=== PATIENT | female | born 1950 | race Caucasian/White ===

== ENCOUNTER → 2016-08-10 | Outpatient (CLI) | payer MEDICARE, OTHER ==
[2016-08-10 07:06] LABS: Blood Urea Nitrogen 21 mg/dL (7-17); Non-African American GFR(MDRD) >60 (>60 ml/min/1.73 sqM)
--- NOTE | 2016-08-10 11:37 | FL ---
Esophagram INDICATION: Dysphasia, sensation of food sticking in throat Double air-contrast technique is utilized to evaluate the esophagus. The esophagus dilates to normal caliber has normal contour to the gastroesophageal junction. Note is made of secondary and tertiary contractions during the examination. There is incomplete stripping of the esophageal bolus in the horizontal drinking position. Note is made of a large hiatal hernia. No hesitancy passing between the hiatal hernia into the stomac h is evident. No stenosis at the gastroesophageal junction at the hernia is evident. Note is made of reflux to the level of the aortic arch during the exam IMPRESSIONS: 1. Gastroesophageal reflux to the aortic arch level. 2. Presbyesophagus. 3. Large hiatal hernia. 4. No obstruction identified
--- NOTE | 2016-08-10 16:32 | CT ---
EXAMINATION TYPE: CT soft tissue neck w con DATE OF EXAM: 08/10/2016 7:28 AM COMPARISON: NONE HISTORY: Dysphasia neck pain CT DLP: 584 mGycm CONTRAST: Patient injected with 100 mL of Omnipaque 300. TECHNIQUE: Axial images at 3 mm thick sections. Reconstructed images in the coronal plane and sagitt al plane are reviewed. Beam hardening artifact from dental amalgam is present. FINDINGS: Limited CT sections are obtained the lung apices. The lung apices appear clear. CT neck: The torus tubarius and fossa of Rosenmuller are normal. Box Brander spaces are normal. Para nasal sinuses and mastoid air cells are clear. Parotid glands appear normal and symmetrical. Small lymph node may be within the anterior left exter nal parotid gland. Submandibular glands, are normal. Parapharyngeal spaces are normal. No suspiciou s adenopathy is evident. Small right submandibular lymph node is present. The hypopharynx appears within normal limits. Vocal cord level appear symmetrical. Thyroid as visualized is normal. Osseous structures are normal. IMPRESSIONS: 1. Unremarkable CT neck.
== END | disposition home or self-care (01) ==
LOC: RADCTMAIN 06:34
PROVIDERS: ATTEND Otolaryngology
DX: K21.9 Gastro-esophageal reflux disease without esophagitis (principal); K22.8 Other specified diseases of esophagus; K44.9 Diaphragmatic hernia without obstruction or gangrene; M54.2 Cervicalgia
CPT/HCPCS: 82565; 84520; 74220; 70491; 36415; Q9967

== ENCOUNTER → 2017-05-14 | Outpatient (CLI) | payer MEDICARE, OTHER ==
--- NOTE | 2017-05-15 13:23 | MM ---
Reason for exam: screening (asymptomatic). Last mammogram was performed 1 year and 1 month ago. History: Patient is postmenopausal. Took estrogen for 14 years. Physical Findings: A clinical breast exam by your physician is recommended on an annual basis and results should be correlated with mammographic findings. MG 3D Screening Mammo W/Cad Bilateral CC and MLO view(s) were taken. Prior study comparison: April 20, 2016, bilateral MG screening mammo w CAD. April 06, 2015, bilateral MG screening mammo w CAD. March 17, 2014, bilateral MG screening mammo w CAD. The breast tissue is heterogeneously dense. This may lower the sensitivity of mammography. There is no discrete abnormality. ASSESSMENT: Negative, BI-RAD 1 RECOMMENDATION: Routine screening mammogram of both breasts in 1 year.
== END | disposition home or self-care (01) ==
LOC: RADMAMWWP 08:48
PROVIDERS: ATTEND Internal Medicine
DX: Z12.31 Encounter for screening mammogram for malignant neoplasm of breast (principal)
CPT/HCPCS: 77063; 77067

== ENCOUNTER 2018-12-27 17:39 | Emergency (ER) | payer MEDICARE, OTHER ==
[2018-12-27 17:44] VITALS: BP 152/78; PULSE 86; RESP 18; TEMP 97.8
--- NOTE | 2018-12-27 18:37 | CT ---
EXAMINATION TYPE: CT brain wo con DATE OF EXAM: 12/27/2018 COMPARISON: None HISTORY: posterior head injury following fall CT DLP: 1087.4 mGycm Automated exposure control for dose reduction was used. FINDINGS: Ventricles have normal size. There is no mass effect nor midline shift. There is no sign of intracran ial hemorrhage. The calvarium is intact. IMPRESSION: NEGATIVE HEAD CT SCAN.
--- NOTE | 2018-12-27 19:01 | ED ---
Fall HPI - General Chief Complaint: Fall Stated Complaint: fall, head injury Time Seen by Provider: 12/27/18 17:49 Source: patient Mode of arrival: wheelchair - History of Present Illness Initial Comments: Patient is a 68-year-old female presenting to the emergency Department with complaints of right knee pain after falling off the second step of a ladder yesterday. She states she was attempting to paint her bathroom when she lost her footing and fell backwards also hitting her head on the toilet. Patient states her right knee pain has been increasing since yesterday. SHe is unsure what she hit her knee on. She denies any previous surgeries her right knee. Patient denies being on a blood thinner. Patient denies LOC. Patient denies fever, chills, nausea, vomiting. Patient has no other complaints right now. Upon arrival to ER vital signs are stable. Review of Systems ROS Statement: Those systems with pertinent positive or pertinent negative responses have been documented in the HPI. ROS Other: All systems not noted in ROS Statement are negative. Past Medical History Past Medical History: GERD/Reflux, Osteoarthritis (OA) Additional Past Medical History / Comment(s): SVT, hiatal hernia History of Any Multi-Drug Resistant Organisms: None Reported Past Surgical History: Adenoidectomy, Hysterectomy, Tonsillectomy Additional Past Surgical History / Comment(s): bladder suspension Past Psychological History: No Psychological Hx Reported Smoking Status: Never smoker Past Alcohol Use History: None Reported Past Drug Use History: None Reported General Exam - General Exam Comments Initial Comments: GENERAL: Well-appearing, well-nourished and in no acute distress. HEAD: Atraumatic, normocephalic. Patient has a small hematoma present on the left, posterior aspect of the head. EYES: Pupils equal round and reactive to light, extraocular movements intact, sclera anicteric, conjunctiva are normal. ENT: TMs normal, nares patent, oropharynx clear without exudates. Moist mucous membranes. NECK: Normal range of motion, supple without lymphadenopathy or JVD. LUNGS: Breath sounds clear to auscultation bilaterally and equal. No wheezes rales or rhonchi. HEART: Regular rate and rhythm without murmurs, rubs or gallops. ABDOMEN: Soft, nontender, normoactive bowel sounds. No guarding, no rebound. No masses appreciated. : Deferred EXTREMITIES: Patient has mild swelling proximal to her right patella. Patient has pain with palpation of her distal quadricep muscle and along the lateral aspect of the right superior knee. No pain with palpation in the right knee joint line or lower leg. Patient has decreased range of motion secondary to pain. No clubbing or cyanosis. NEUROLOGICAL: Cranial nerves II through XII grossly intact. Normal speech, normal gait. PSYCH: Normal mood, normal affect. SKIN: Warm, Dry, normal turgor, no rashes or lesions noted. Limitations: no limitations Course Vital Signs 12/27/18 17:41 Temperature 97.8 F Pulse Rate 86 Respiratory 18 Rate Blood Pressure 152/78 O2 Sat by Pulse 98 Oximetry Medical Decision Making - Medical Decision Making Patient is a 68-year-old female presenting with right knee pain after falling off the second step of a ladder yesterday. Patient admits to also hitting her head on the toilet when she fell backwards. Patient denies LOC, being on blood thinners. On exam patient has tenderness of the distal quadricep muscle of the right knee. Patient has mild swelling of the area as well. Patient also has a hematoma on the left posterior aspect of the head. Rest of patient's exam is within normal limits. CT of the brain was obtained and reveals no acute abnormalities. It was discussed with patient that her right knee pain is secondary to right quadricep contusion. Patient will use to rest, heat, ice to the area. If symptoms do not improve within 1 week she will follow-up with primary care. Patient is stable for discharge at this time. Return parameters were discussed with patient she verbalized understanding. Case discussed with Dr. Cordoba. Disposition Clinical Impression: Fall, Head contusion, Right knee pain, Quadriceps contusion Disposition: HOME SELF-CARE Condition: Stable Instructions (If sedation given, give patient instructions): Fall Prevention for Older Adults (ED), Contusion in Adults (ED) Additional Instructions: Please return to the Emergency Department if symptoms worsen or any other concerns. Follow-up with PCP if pain and right knee continues after 1 week. Use ice, elevation, Tylenol for pain. Is patient prescribed a controlled substance at d/c from ED?: No Referrals: Linda Najera MD [Primary Care Provider] - 1-2 days
== END 2018-12-27 19:15 | disposition home or self-care (01) ==
LOC: EC 17:39
DX: S00.93XA Contusion of unspecified part of head, initial encounter (principal); S70.11XA Contusion of right thigh, initial encounter; W18.09XA Striking against other object with subsequent fall, initial encounter; Y92.002 Bathroom of unspecified non-institutional (private) residence as the place of occurrence of the external cause
CPT/HCPCS: 70450; 99283

== ENCOUNTER 2019-08-21 12:10 | Emergency (ER) | payer MEDICARE, OTHER ==
[2019-08-21 12:25] VITALS: TEMP 98.5
[2019-08-21] MEDS ORDERED: SODIUM CHLORIDE 0.9% 1,000 ML IV SCH (12:30)
[2019-08-21] MEDS ORDERED: SODIUM CHLORIDE 0.9% 500 ML 500 ML IV ONE (12:30)
--- NOTE | 2019-08-21 12:30 | ED ---
Abdominal Pain HPI - General Chief Complaint: Abdominal Pain Stated Complaint: Constipation Time Seen by Provider: 08/21/19 12:27 Source: patient Mode of arrival: ambulatory Limitations: no limitations - History of Present Illness Initial Comments: 69-year-old female presenting today for chief complaint of lower abdominal pain, distention x 4 days. Patient states she has struggled constipation over the past 2 years has been taking daily stool softeners. She states it has worsened for the past 2 weeks she took a laxative on Saturday and had a large bowel movement however she has very painful aching dull pain in the lower abdomen, including LLQ. Patient states this feels different from her typical constipation, which she states is usually no painful. Patient denies nausea, vomiting, bloody stools, diarrhea (aside from taking laxatives). Patient states she took miralax twice on Saturday which did not help and she did no have a bowel movement. Patient denies upper abdominal pain, indigestion, chest pain or shortness of breath. Patient Arianne urinary symptoms such as dysuria, urgency and frequency. Patient appears slightly uncomfortable on arrival- but in no distress. Very pleasant. - Related Data Allergies Allergy/AdvReac Type Severity Reaction Status Date / Time Iodinated Contrast Media Allergy Mild Rash/Hives Unverified 08/21/19 14:25 Review of Systems ROS Statement: Those systems with pertinent positive or pertinent negative responses have been documented in the HPI. ROS Other: All systems not noted in ROS Statement are negative. Past Medical History Past Medical History: GERD/Reflux, Osteoarthritis (OA), Supraventricular Tachycardia (SVT) Additional Past Medical History / Comment(s): SVT, hiatal hernia, arthritis History of Any Multi-Drug Resistant Organisms: None Reported Past Surgical History: Adenoidectomy, Hysterectomy, Tonsillectomy Additional Past Surgical History / Comment(s): bladder suspension Past Psychological History: No Psychological Hx Reported Smoking Status: Never smoker Past Alcohol Use History: None Reported Past Drug Use History: None Reported General Exam - General Exam Comments Initial Comments: General: The patient is awake and alert, in no distress, and does not appear acutely ill. Eye: Pupils are equal, round and reactive to light, extra-ocular movements are intact. No nystagmus. There is normal conjunctiva bilaterally. No signs of icterus. Ears, nose, mouth and throat: There are moist mucous membranes and no oral lesions. Neck: The neck is supple, there is no tenderness or JVD. Cardiovascular: There is a regular rate and rhythm. No murmur, rub or gallop is appreciated. Respiratory: Lungs are clear to auscultation, respirations are non-labored, breath sounds are equal. No wheezes, stridor, rales, or rhonchi. Gastrointestinal: Soft, non-distended, diffuse lower abdominal tenderness remaining abdomen without masses or organomegaly noted. There is no rebound or guarding present. No CVA tenderness. Bowel sounds are unremarkable. Musculoskeletal: Normal ROM, no tenderness. Strength 5/5. Sensation intact. Radial pulses equal bilaterally 2+. Neurological: A&O x 3. CN II-XII intact, There are no obvious motor or sensory deficits. Coordination appears grossly intact. Speech is normal. Skin: Skin is warm and dry and no rashes or lesions are noted. Psychiatric: Cooperative, appropriate mood & affect, normal judgment. Limitations: no limitations Course Vital Signs 08/21/19 08/21/19 08/21/19 12:20 12:24 13:24 Temperature 98.5 F Pulse Rate 105 H Respiratory 18 20 20 Rate Blood Pressure 151/92 O2 Sat by Pulse 98 Oximetry 08/21/19 08/21/19 08/21/19 14:00 15:00 16:20 Temperature Pulse Rate 98 93 Respiratory 20 20 20 Rate Blood Pressure 155/90 162/96 O2 Sat by Pulse 98 98 Oximetry 08/21/19 16:25 Temperature Pulse Rate 93 Respiratory 20 Rate Blood Pressure 162/96 O2 Sat by Pulse 98 Oximetry Medical Decision Making - Medical Decision Making CT revealed incidental finding of hiatal hernia, cystic lesions of the kidneys patient states she is aware of this. Patient CT otherwise no apparent acute process. Stool burden. Patient states that she doesnt want treatment for constipation in the ER as the laxatives worked on saturday and she will take some at home. Labs stable. Patient appears well. She was discharged appearing well after discussing case with Dr. Ramirez. - Lab Data Result diagrams: 08/21/19 12:59 08/21/19 12:59 Lab Results 08/21/19 08/21/19 08/21/19 Range/Units 12:59 12:59 12:59 WBC 6.2 (3.8-10.6) k/uL RBC 4.87 (3.80-5.40) m/uL Hgb 13.8 (11.4-16.0) gm/dL Hct 43.7 (34.0-46.0) % MCV 89.8 (80.0-100.0) fL MCH 28.3 (25.0-35.0) pg MCHC 31.5 (31.0-37.0) g/dL RDW 13.5 (11.5-15.5) % Plt Count 303 (150-450) k/uL Neutrophils % 63 % Lymphocytes % 24 % Monocytes % 8 % Eosinophils % 2 % Basophils % 1 % Neutrophils # 3.9 (1.3-7.7) k/uL Lymphocytes # 1.5 (1.0-4.8) k/uL Monocytes # 0.5 (0-1.0) k/uL Eosinophils # 0.2 (0-0.7) k/uL Basophils # 0.1 (0-0.2) k/uL Sodium 139 (137-145) mmol/L Potassium 4.4 (3.5-5.1) mmol/L Chloride 102 (98-107) mmol/L Carbon Dioxide 28 (22-30) mmol/L Anion Gap 9 mmol/L BUN 12 (7-17) mg/dL Creatinine 0.72 (0.52-1.04) mg/dL Est GFR (CKD-EPI)AfAm >90 (>60 ml/min/1.73 sqM) Est GFR (CKD-EPI)NonAf 87 (>60 ml/min/1.73 sqM) Glucose 100 H (74-99) mg/dL Plasma Lactic Acid Rogerio (0.7-2.0) mmol/L Calcium 9.8 (8.4-10.2) mg/dL Total Bilirubin 0.5 (0.2-1.3) mg/dL AST 29 (14-36) U/L ALT 15 (4-34) U/L Alkaline Phosphatase 106 (38-126) U/L Total Protein 7.8 (6.3-8.2) g/dL Albumin 4.7 (3.5-5.0) g/dL Amylase 56 (30-110) U/L Lipase 159 (23-300) U/L Urine Color Light Yellow Urine Appearance Clear (Clear) Urine pH 6.5 (5.0-8.0) Ur Specific [place] 1.002 (1.001-1.035) Urine Protein Negative (Negative) Urine Glucose (UA) Negative (Negative) Urine Ketones Negative (Negative) Urine Blood Negative (Negative) Urine Nitrite Negative (Negative) Urine Bilirubin Negative (Negative) Urine Urobilinogen <2.0 (<2.0) mg/dL Ur Leukocyte Esterase Negative (Negative) 08/21/19 Range/Units 12:59 WBC (3.8-10.6) k/uL RBC (3.80-5.40) m/uL Hgb (11.4-16.0) gm/dL Hct (34.0-46.0) % MCV (80.0-100.0) fL MCH (25.0-35.0) pg MCHC (31.0-37.0) g/dL RDW (11.5-15.5) % Plt Count (150-450) k/uL Neutrophils % % Lymphocytes % % Monocytes % % Eosinophils % % Basophils % % Neutrophils # (1.3-7.7) k/uL Lymphocytes # (1.0-4.8) k/uL Monocytes # (0-1.0) k/uL Eosinophils # (0-0.7) k/uL Basophils # (0-0.2) k/uL Sodium (137-145) mmol/L Potassium (3.5-5.1) mmol/L Chloride (98-107) mmol/L Carbon Dioxide (22-30) mmol/L Anion Gap mmol/L BUN (7-17) mg/dL Creatinine (0.52-1.04) mg/dL Est GFR (CKD-EPI)AfAm (>60 ml/min/1.73 sqM) Est GFR (CKD-EPI)NonAf (>60 ml/min/1.73 sqM) Glucose (74-99) mg/dL Plasma Lactic Acid Rogerio 1.0 (0.7-2.0) mmol/L Calcium (8.4-10.2) mg/dL Total Bilirubin (0.2-1.3) mg/dL AST (14-36) U/L ALT (4-34) U/L Alkaline Phosphatase (38-126) U/L Total Protein (6.3-8.2) g/dL Albumin (3.5-5.0) g/dL Amylase (30-110) U/L Lipase (23-300) U/L Urine Color Urine Appearance (Clear) Urine pH (5.0-8.0) Ur Specific [place] (1.001-1.035) Urine Protein (Negative) Urine Glucose (UA) (Negative) Urine Ketones (Negative) Urine Blood (Negative) Urine Nitrite (Negative) Urine Bilirubin (Negative) Urine Urobilinogen (<2.0) mg/dL Ur Leukocyte Esterase (Negative) Disposition Clinical Impression: Constipation, Renal cyst, Hiatal hernia Disposition: HOME SELF-CARE Condition: Good Instructions (If sedation given, give patient instructions): Constipation (ED), High Fiber Diet (ED) Additional Instructions: Please use medication as discussed. Please follow-up with family doctor in the next 2 days. Please return to emergency room if the symptoms increase or worsen or for any other concerns. Is patient prescribed a controlled substance at d/c from ED?: No Referrals: Linda Najera MD [Primary Care Provider] - 1-2 days Taras Perez MD [STAFF PHYSICIAN] - 1-2 days Time of Disposition: 15:04
[2019-08-21 13:14] LABS: Appearance,Urine Clear (Clear); Basophils # (A) 0.1 k/uL (0-0.2); Basophils % (A) 1 %; Bilirubin,Urine Negative (Negative); Blood,Urine Negative (Negative); Color,Urine Light Yellow; Eosinophils # (A) 0.2 k/uL (0-0.7); Eosinophils % (A) 2 %; Glucose,Urine (UA) Negative (Negative); HCT 43.7 % (34.0-46.0); HGB 13.8 gm/dL (11.4-16.0); Ketones,Urine Negative (Negative); Leukocyte Esterase,Urine Negative (Negative); Lymphocytes # (A) 1.5 k/uL (1.0-4.8); Lymphocytes % (A) 24 %; MCH 28.3 pg (25.0-35.0); MCHC 31.5 g/dL (31.0-37.0); MCV 89.8 fL (80.0-100.0); Mean Platelet Volume 7.8; Monocytes # (A) 0.5 k/uL (0-1.0); Monocytes % (A) 8 %; Neutrophils # (A) 3.9 k/uL (1.3-7.7); Neutrophils % (A) 63 %; Nitrite,Urine Negative (Negative); PH, Urine 6.5 (5.0-8.0); Platelet Count 303 k/uL (150-450); Protein,Urine Negative (Negative); RBC 4.87 m/uL (3.80-5.40); RDW 13.5 % (11.5-15.5); Specific Gravity,Urine 1.002 (1.001-1.035); Urobilinogen,Urine <2.0 mg/dL (<2.0); WBC 6.2 k/uL (3.8-10.6)
[2019-08-21 13:27] VITALS: RESP 20
[2019-08-21 13:48] LABS: ALT 15 U/L (4-34); AST 29 U/L (14-36); African American GFR (CKD) >90 (>60 ml/min/1.73 sqM); Albumin 4.7 g/dL (3.5-5.0); Alkaline Phosphatase 106 U/L (38-126); Amylase 56 U/L (30-110); Anion Gap 9 mmol/L; Blood Urea Nitrogen 12 mg/dL (7-17); Calcium 9.8 mg/dL (8.4-10.2); Carbon Dioxide 28 mmol/L (22-30); Chloride 102 mmol/L (98-107); Glucose 100 mg/dL (74-99); Non-African American GFR(CKD) 87 (>60 ml/min/1.73 sqM); Potassium 4.4 mmol/L (3.5-5.1); Sodium 139 mmol/L (137-145); Total Bilirubin 0.5 mg/dL (0.2-1.3); Total Protein 7.8 g/dL (6.3-8.2)
[2019-08-21] MEDS ORDERED: diphenhydrAMINE 50 MG/ML 1 ML VIAL IVP STA (13:56)
[2019-08-21] MEDS ORDERED: FAMOTIDINE 20 MG/2 ML VIAL IV STA (13:56)
[2019-08-21] MEDS ORDERED: methylPREDNISolone SOD SUCCI 125 MG/2 ML VIAL IV STA (13:56)
--- NOTE | 2019-08-21 15:00 | CT ---
EXAMINATION TYPE: CT abdomen pelvis w con DATE OF EXAM: 08/21/2019 HISTORY: Generalized pain CT DLP: 1124.9mGycm Automated Exposure Control for Dose Reduction was Utilized. CONTRAST: CT scan of the abdomen and pelvis is performed with IV Contrast, patient injected with 100 mL of Isov ue 300. COMPARISON: Barium swallow dated 08/10/2016 FINDINGS: LUNG BASES: Minimal scattered areas of subsegmental atelectasis, particularly along the mediastinal b order due to a large hiatal hernia/partial intrathoracic stomach. LIVER/GB: Numerous low attenuated hepatic cysts and some subcentimeter lesions that are too small to accurately characterize but also likely represent hepatic cysts are seen. Phrygian cap of the gallbla dder is incidentally noted no radiopaque calculi in the gallbladder. PANCREAS: No significant abnormality is seen. SPLEEN: No significant abnormality is seen. ADRENALS: No significant abnormality is seen. KIDNEYS: Large right renal sinus cyst measures 6.8 cm in craniocaudal dimension and impresses on the right renal pelvis creating mild right-sided hydronephrosis. Excretion is seen into the right proxima l ureter and renal pelvis and no right-sided ureteral dilatation is seen in the mid or distal ureter. Nonobstructing 8 mm calculus is present on the left and probable 3 mm nonobstructing calculus on the right. There are right renal cysts measuring up to 1.1 cm and a probable subcentimeter left renal cy st. No radiopaque calculi in the urinary bladder. BOWEL: Partial intrathoracic stomach is seen. Mild degree colonic fecal stasis. No dilated large or s mall bowel. Lack of oral contrast limits evaluation of the bowel. LYMPH NODES: No greater than 1cm abdominal or pelvic lymph nodes are appreciated. OSSEOUS STRUCTURES: Nonspecific sclerotic focus of the left sacrum as seen on image 61. There is diff use osseous demineralization. Other sclerotic foci are seen within the pubic bones that are also inde terminate. Mild multilevel degenerative change of the spine. Grade 1 anterolisthesis of L5 on S1, lik francisca on a degenerative basis. IMPRESSION: 1. Large right renal sinus cyst diving into the renal pelvis creates mild right-sided hydronephrosis. Bilateral nonobstructing renal calculi are also seen. 2. Largely intrathoracic stomach.
[2019-08-21 16:26] VITALS: BP 162/96; PULSE 93
== END 2019-08-21 16:27 | disposition home or self-care (01) ==
LOC: EC 12:10
DX: K59.00 Constipation, unspecified (principal); N28.1 Cyst of kidney, acquired; K44.9 Diaphragmatic hernia without obstruction or gangrene; Z91.041 Radiographic dye allergy status; Z90.710 Acquired absence of both cervix and uterus
CPT/HCPCS: 99284; 96374; 96375 ×2; 96361 ×3; 36415; 80053; 82150; 83605; 83690; 85025; 81003; 74177; J1200; J2930; Q9967

== ENCOUNTER → 2020-03-14 | Outpatient (CLI) | payer MEDICARE, OTHER ==
--- NOTE | 2020-03-15 09:44 | MM ---
Reason for exam: screening (asymptomatic). Last mammogram was performed 1 year and 8 months ago. History: Patient is postmenopausal. Took estrogen for 14 years. Physical Findings: A clinical breast exam by your physician is recommended on an annual basis and results should be correlated with mammographic findings. MG 3D Screening Mammo W/Cad Bilateral CC and MLO view(s) were taken. Prior study comparison: July 14, 2018, bilateral MG 3d screening mammo w/cad. May 14, 2017, bilateral MG 3d screening mammo w/cad. The breast tissue is heterogeneously dense. This may lower the sensitivity of mammography. There is no discrete abnormality. No significant changes when compared with prior studies. ASSESSMENT: Negative, BI-RAD 1 RECOMMENDATION: Routine screening mammogram of both breasts in 1 year.
== END | disposition home or self-care (01) ==
LOC: RADMAMWWP 08:52
PROVIDERS: ATTEND Internal Medicine
DX: Z12.31 Encounter for screening mammogram for malignant neoplasm of breast (principal)
CPT/HCPCS: 77063; 77067

== ENCOUNTER → 2020-09-12 | Outpatient (CLI) | payer MEDICARE, OTHER ==
--- NOTE | 2020-09-12 11:35 | XR ---
EXAMINATION TYPE: XR ribs RT w pa chest xray DATE OF EXAM: 09/12/2020 CLINICAL HISTORY: Chest and right-sided rib pain after fall injury. TECHNIQUE: Single frontal view of the chest is obtained. A frontal and oblique images right-sided rib s. COMPARISON: CT abdomen September 10, 2019 FINDINGS: There is patchy bibasilar opacity. The cardiac silhouette size is within normal limits. Retrocardiac opacity consistent with large size hiatal hernia or intrathoracic stomach noted. Finding s confirmed on 2019 CT. The osseous structures are intact. Dedicated images right-sided ribs show age indeterminant fractures of the anterolateral right mid rib s roughly fifth through seventh ribs difficult to further assess due to osseous overlap. Correlate wi th point tenderness at this level advised. IMPRESSION: 1. Chronic changes without acute pulmonary process. 2. Age-indeterminate fractures of the anterolateral right fifth through seventh ribs, correlate clini xavier.
== END ==
LOC: RADXRYALE 11:00
PROVIDERS: ATTEND Internal Medicine
DX: R07.81 Pleurodynia (principal); W19.XXXA Unspecified fall, initial encounter

== ENCOUNTER → 2021-04-10 | Outpatient (CLI) | payer MEDICARE, OTHER ==
--- NOTE | 2021-04-10 12:05 | MM ---
Reason for exam: screening (asymptomatic). Last mammogram was performed 1 year and 1 month ago. History: Patient is postmenopausal. Took estrogen for 14 years. Physical Findings: A clinical breast exam by your physician is recommended on an annual basis and results should be correlated with mammographic findings. MG 3D Screening Mammo W/Cad Bilateral CC and MLO view(s) were taken. Prior study comparison: March 14, 2020, bilateral MG 3d screening mammo w/cad. July 14, 2018, bilateral MG 3d screening mammo w/cad. There are scattered fibroglandular densities. There is no discrete abnormality. ASSESSMENT: Negative, BI-RAD 1 RECOMMENDATION: Routine screening mammogram of both breasts in 1 year.
== END | disposition home or self-care (01) ==
LOC: RADMAMWWP 10:46
PROVIDERS: ATTEND Internal Medicine
DX: Z12.31 Encounter for screening mammogram for malignant neoplasm of breast (principal)
CPT/HCPCS: 77063; 77067

== ENCOUNTER → 2021-11-18 | Outpatient (CLI) | payer MEDICARE, OTHER ==
--- NOTE | 2021-11-18 16:24 | MR ---
EXAMINATION TYPE: MR lumbar spine wo con DATE OF EXAM: 11/18/2021 COMPARISON: HISTORY: Low back pain that radiates down both legs since 2021 CONTRAST: 0 mL intravenous . TECHNIQUE: Multiplanar, multisequence images of the lumbar spine were acquired. FINDINGS: L5-S1: No significant disc bulge or disc herniation. No spinal canal stenosis. Facet hypertrophy is present. Significant posterior lateral thecal sac compression is not evident. Moderate foraminal st enosis is present on the right. L4-L5: No significant disc bulge or disc herniation. No spinal canal stenosis. Facet hypertrophy is present with mild posterior lateral thecal sac compression. Mild foraminal narrowing is present on the right.. L3-L4: No significant disc bulge or disc herniation. No spinal canal stenosis. Facet hypertrophy herbert s posterior lateral thecal sac compression. Mild Left foraminal stenosis is present.. Severe right fo raminal stenosis is present. L2-L3: No significant disc bulge or disc herniation. No spinal canal stenosis. Moderate Left forami nal narrowing is present. Facet hypertrophy is present with left posterior lateral thecal sac alejandra cindy L1-L2: Mild broad-based left paracentral disc bulge present with mild to moderate anterior thecal sac compression. No AP spinal canal stenosis or neural foraminal stenosis is present. Disc desiccation is present.. T12-L1: No significant disc bulge or disc herniation. No spinal canal stenosis. No foraminal stenos is. Disc desiccation is present.. IMPRESSION: 1. Facet hypertrophy greatest in severe at L3-4 on the right. 2. Facet hypertrophy L4-5 and L5-S1. Some posterior lateral thecal sac compression at L4-5 and L3-4 i s present. 3. Mild broad-based left paracentral disc bulge L1-2 with mild to moderate anterior thecal sac compre ssion.
== END | disposition home or self-care (01) ==
LOC: RADMRIMAIN 07:50
PROVIDERS: ATTEND Anesthesiology
DX: M51.36 Other intervertebral disc degeneration, lumbar region (principal); M47.896 Other spondylosis, lumbar region
CPT/HCPCS: 72148

== ENCOUNTER → 2022-01-08 | Outpatient (CLI) | payer MEDICARE, OTHER ==
--- NOTE | 2022-01-08 12:19 | XR ---
EXAMINATION TYPE: XR KUB DATE OF EXAM: 01/08/2022 COMPARISON: None INDICATION: Renal calculus TECHNIQUE: Single view abdomen frontal projection FINDINGS: There is a nonspecific bowel gas pattern. Psoas margins are normal. No organomegaly is present. There is a 1.1 cm calcification at the mid pole left kidney. A right renal pelvic stone on excluded m easuring 0.7 cm. IMPRESSION: 1. Left renal calculus. 2. Smaller right renal pelvic calculus is not excluded
== END | disposition home or self-care (01) ==
LOC: RADXRMAIN 11:43
PROVIDERS: ATTEND Urology
DX: N20.0 Calculus of kidney (principal)
CPT/HCPCS: 74018

== ENCOUNTER → 2022-04-17 | Outpatient (CLI) | payer MEDICARE, OTHER ==
--- NOTE | 2022-04-18 08:08 | MM ---
Reason for Exam: Screening (asymptomatic). Last screening mammogram was performed 12 month(s) ago. Patient History: Menarche at age 15. First Full-Term at age 28. Left ovary removed at age 37. Right ovary removed at age 37. Hysterectomy at age 37. Postmenopausal. Patient used Estrogen for 14 years. Risk Values: Supriya 5 year model risk: 1.8%. NCI Lifetime model risk: 4.9%. Prior Study Comparison: 07/14/2018 Bilateral Screening Mammogram, [facility]. 03/14/2020 Bilateral Screening Mammogram, [facility]. 04/10/2021 Bilateral Screening Mammogram, [facility]. Tissue Density: There are scattered fibroglandular densities. Findings: Analyzed By CAD. There is no suspicious group of microcalcifications or new suspicious mass in either breast. Overall Assessment: Negative, BI-RAD 1 Management: Screening Mammogram of both breasts in 1 year. A clinical breast exam by your physician is recommended on an annual basis and results should be correlated with mammographic findings. [facility] will attempt to contact patient to return for supplemental views and ultrasound if indicated. Electronically signed and approved by: Pino Patel DO
== END | disposition home or self-care (01) ==
LOC: RADMAMWWP 09:12
PROVIDERS: ATTEND Internal Medicine
DX: Z12.31 Encounter for screening mammogram for malignant neoplasm of breast (principal); Z78.0 Asymptomatic menopausal state
CPT/HCPCS: 77063; 77067

== ENCOUNTER → 2023-05-08 | Outpatient (CLI) | payer MEDICARE, OTHER ==
--- NOTE | 2023-05-08 18:27 | BD ---
EXAMINATION TYPE: Axial Bone Density DATE OF EXAM: 05/08/2023 CLINICAL HISTORY: 72 years old Female. ICD-10 CODE: N95.8 MENOPAUSAL AND PERIMENOPAUS Height: 64 Weight: 150.3 FRAX RISK QUESTIONS: Alcohol (3 or more units per day): no Family History (Parent hip fracture): no Glucocorticoids (More than 3mos): no (Ex: prednisone, prednisolone, methylprednisolone, dexamethasone, and hydrocortisone). History of Fracture in Adulthood: yes Secondary Osteoporosis: 1. Type 1 Diabetes: no 2. Hyperthyroidism: no 3. Menopause before 45: yes 4. Malnutrition: no 5. Chronic liver disease: no Rheumatoid Arthritis: yes Current Tobacco Use: no RISK FACTORS HISTORY OF: History of Wrist Fracture: bilateral wrist When: 15 years ago Surgery to Spine/Hip(right/left)/Wrist (right/left): no MEDICATIONS: Additional History: EXAM MEASUREMENTS: Bone mineral densitometry was performed using the [employer] System. Bone mineral density as measured about the Lumbar spine is: ----- L1-L4(G/cm2): 1.262 T Score Values are as follows: ----- L1: -1.2 ----- L2: 0.3 ----- L3: 1.1 ----- L4: 1.7 ----- L1-L4: 0.7 Z Score Values are as follows: ----- L1: 0.4 ----- L2: 1.9 ----- L3: 2.7 ----- L4: 3.3 ----- L1-L4: 2.3 Bone mineral density : baseline Bone mineral density about the R hip (g/cm2): 0.792 Bone mineral density about the L hip (g/cm2): 0.850 T Score values are as follows: -----R Neck: -1.4 -----L Neck: -0.8 -----R Total: -1.7 -----L Total: -1.3 Z Score values are as follows: -----R Neck: 0.3 -----L Neck: 0.9 -----R Total: -0.2 -----L Total: 0.3 Bone mineral density : baseline FRAX%s: The graph provided illustrates a 21.0 % chance for a major osteoporotic fx and a 3.6% chance for the hips probability for fx in 10 years time. IMPRESSION: Osteopenia (T Score between -2.5 and -1). There is slightly increased risk of fracture and the patient may be considered for treatment. Re-Screen 2-5 years. NOTE: T-SCORE=SD OF THE YOUNG ADULT MEAN.
--- NOTE | 2023-05-09 20:06 | MM ---
Reason for Exam: Screening (asymptomatic). Last mammogram was performed 1 year(s) and 1 month(s) ago. Patient History: Menarche at age 15. First Full-Term at age 28. Left ovary removed at age 37. Right ovary removed at age 37. Hysterectomy at age 37. Postmenopausal. Patient used Estrogen for 14 years. Risk Values: Supriya 5 year model risk: 1.8%. NCI Lifetime model risk: 4.6%. Prior Study Comparison: 03/14/2020 Bilateral Screening Mammogram, [facility]. 04/10/2021 Bilateral Screening Mammogram, [facility]. 04/17/2022 Bilateral MG 3D screening mammo w/cad, [facility]. Tissue Density: The breast tissue is heterogeneously dense. This may lower the sensitivity of mammography. Findings: Analyzed By CAD. There is no suspicious group of microcalcifications or new suspicious mass in either breast. Overall Assessment: Negative, BI-RAD 1 Management: Screening Mammogram of both breasts in 1 year. . Patient should continue monthly self-breast exams. A clinical breast exam by your physician is recommended on an annual basis. This exam should not preclude additional follow-up of suspicious palpable abnormalities. Note on Supriya scores and lifetime risk: 1. A Supriya score greater than 3% is considered moderate risk. If this is the case, consider specialist referral to assess eligibility for a risk reducing agent. 2. If overall lifetime risk for the development of breast cancer is 20% or higher, the patient may qualify for future screening with alternating mammogram and breast MRI. Electronically signed and approved by: Anthony Perez M.D. Radiologist
== END | disposition home or self-care (01) ==
LOC: RADMAMWWP 07:55
PROVIDERS: ATTEND Internal Medicine
DX: Z12.31 Encounter for screening mammogram for malignant neoplasm of breast (principal); M85.89 Other specified disorders of bone density and structure, multiple sites; Z78.0 Asymptomatic menopausal state
CPT/HCPCS: 77063; 77067; 77080

== ENCOUNTER → 2023-10-22 | Outpatient (CLI) | payer MEDICARE, OTHER ==
[2023-10-22 15:52] LABS: Alkaline Phosphatase 57 U/L (41-126); Blood Urea Nitrogen 16.2 mg/dL (9.0-27.0); C Reactive Protein <0.30 mg/dL (0.00-0.80); Calcium 9.3 mg/dL (8.7-10.3)
== END | disposition home or self-care (01) ==
LOC: LABWHC1 10:32
PROVIDERS: ATTEND Internal Medicine Rheumatology
DX: M25.50 Pain in unspecified joint (principal); M06.4 Inflammatory polyarthropathy; M81.0 Age-related osteoporosis without current pathological fracture
CPT/HCPCS: 36415; 82306; 82310; 82565; 83970; 84075; 84520; 85652; 86140

== ENCOUNTER → 2024-05-20 | Outpatient (CLI) | payer MEDICARE, OTHER ==
--- NOTE | 2024-05-20 08:56 | MM ---
Reason for Exam: Screening (asymptomatic). Last screening mammogram was performed 12 month(s) ago. Patient History: Menarche at age 15. First Full-Term at age 28. Left ovary removed at age 37. Right ovary removed at age 37. Hysterectomy at age 37. Postmenopausal. Patient used Estrogen for 14 years. Risk Values: Supriya 5 year model risk: 1.8%. NCI Lifetime model risk: 4.4%. Prior Study Comparison: 04/10/2021 Bilateral Screening Mammogram, [facility]. 04/17/2022 Bilateral MG 3D screening mammo w/cad, [facility]. 05/08/2023 Bilateral MG 3D screening mammo w/cad, [facility]. Tissue Density: There are scattered areas of fibroglandular density. Findings: Analyzed By CAD. Right breast: There is no suspicious group of microcalcifications or new suspicious mass. Left breast: There is no suspicious group of microcalcifications or new suspicious mass. Overall Assessment: Negative, BI-RAD 1 Management: Screening Mammogram of both breasts in [address] [facility] will attempt to contact patient to return for supplemental views and ultrasound if indicated. Patient should continue monthly self-breast exams. A clinical breast exam by your physician is recommended on an annual basis. This exam should not preclude additional follow-up of suspicious palpable abnormalities. Note on Supriya scores and lifetime risk: 1. A Supriya score greater than 3% is considered moderate risk. If this is the case, consider specialist referral to assess eligibility for a risk reducing agent. 2. If overall lifetime risk for the development of breast cancer is 20% or higher, the patient may qualify for future screening with alternating mammogram and breast MRI. [facility], , 05/20/2024 8:53 AM. Electronically signed and approved by: Pino Patel DO
== END | disposition home or self-care (01) ==
LOC: RADMAMWWP 07:37
PROVIDERS: ATTEND Internal Medicine
DX: Z12.31 Encounter for screening mammogram for malignant neoplasm of breast (principal); R92.323 Mammographic fibroglandular density, bilateral breasts; Z78.0 Asymptomatic menopausal state
CPT/HCPCS: 77063; 77067

== ENCOUNTER 2024-09-04 14:35 | Inpatient (IN) | payer MEDICARE, OTHER ==
[2024-09-04 16:50] LABS: Basophils # (A) 0.05 10*3/uL (0.00-0.10); Basophils % (A) 0.7 %; Eosinophils % (A) 1.5 %; HCT 39.2 % (37.2-46.3); HGB 13.2 g/dL (12.0-15.0); Lymphocytes # (A) 1.32 10*3/uL (0.90-5.00); Lymphocytes % (A) 19.7 %; MCH 30.4 pg (27.0-32.0); MCHC 33.7 g/dL (32.0-37.0); MCV 90.3 fL (80.0-97.0); Mean Platelet Volume 10.6 fL (9.5-12.2); Monocytes # (A) 0.59 10*3/uL (0.20-1.00); Monocytes % (A) 8.8 %; Neutrophils # (A) 4.62 10*3/uL (1.80-7.70); Neutrophils % (A) 69.2 %; Platelet Count 284 10*3/uL (140-440); RBC 4.34 10*6/uL (4.10-5.20); RDW 12.6 % (11.5-14.5); WBC 6.69 10*3/uL (4.50-10.00)
[2024-09-04 16:56] LABS: ALT 20 U/L (4-34); AST 32 U/L (14-36); African American GFR (CKD) >90 (>60 ml/min/1.73 sqM); Albumin 4.2 g/dL (3.5-5.0); Alkaline Phosphatase 59 U/L (38-126); Anion Gap 10 mmol/L; Blood Urea Nitrogen 23 mg/dL (7-17); Calcium 9.8 mg/dL (8.4-10.2); Carbon Dioxide 27 mmol/L (22-30); Chloride 102 mmol/L (98-107); Glucose 83 mg/dL (74-99); Magnesium 2.2 mg/dL (1.6-2.3); Non-African American GFR(CKD) 82 (>60 ml/min/1.73 sqM); Potassium 4.5 mmol/L (3.5-5.1); Sodium 139 mmol/L (137-145); Total Bilirubin 0.4 mg/dL (0.2-1.3); Total Protein 6.8 g/dL (6.3-8.2)
[2024-09-04 17:02] LABS: Partial Thromboplastin Time 25.4 sec (22.0-30.0)
[2024-09-04 17:05] LABS: NT-Pro-B-Type Natriuretic Pept 1280 pg/mL
--- NOTE | 2024-09-04 17:05 | XR ---
EXAMINATION TYPE: XR chest 2V DATE OF EXAM: 09/04/2024 5:02 PM COMPARISON: None available. CLINICAL INDICATION: Female, 74 years old with history of Chest Pain; [facility] TECHNIQUE: XR chest 2V Frontal and lateral views of the chest. FINDINGS: Lungs/Pleura: There is flattening of the diaphragm with increased lucency of the lungs. No evidence o f pneumothorax, pleural effusion or focal consolidation. Pulmonary vascularity: Unremarkable. Heart/mediastinum: Cardiomediastinal silhouette is unremarkable. Musculoskeletal: No acute osseous pathology. Other findings: None IMPRESSION: 1. No acute cardiopulmonary disease/process. 2. Findings suggestive of COPD. [facility], , 09/04/2024 5:03 PM
[2024-09-04] MEDS ORDERED: HEPARIN SODIUM 1,000 UN/ML (10ML VL) IV PRN (17:47)
[2024-09-04] MEDS: ASPIRIN 81 MG PO STA (18:21)
[2024-09-04] MEDS: HEPARIN SODIUM 1,000 UN/ML (10ML VL) IV ONE (18:37)
[2024-09-04] MEDS: NITROGLYCERIN SL TABS 0.4 MG TAB SUBLINGUAL STA (18:37)
[2024-09-04] MEDS: HEPARIN SOD,PORK IN 0.45% NACL 25,000 UNIT in 0.45% NACL 1 250ML.BAG IV SCH (18:38)
--- NOTE | 2024-09-04 18:51 | ED ---
Chest Pain HPI - General Chief Complaint: Chest Pain Stated Complaint: chest pain Time Seen by Provider: 09/04/24 17:04 Source: patient Mode of arrival: ambulatory Limitations: no limitations - History of Present Illness Initial Comments: 74-year-old female presents to the emergency department reporting chest pain. Patient states the pain has been going on for the past several days. It occurs with exertion. She did have some pain today and went into her primary care office who sent her here. Pain is located on the left side of her chest and wraps around. Denies feeling short of breath. Has some nausea with mild sweating. States the pain is present at this time graded 8 out of 10. She denies fevers, chills or cough. Does have a history of SVT but no history of coronary disease. She did take a baby aspirin this morning. She did have a heart cath approximately 5 years ago which was normal. No ripping or tearing station to her back. No abdominal pain. No numbness, ting or weakness in her extremities. No history of DVT or PE. No other alleviating, precipitating or modifying factors - Related Data Home Medications Medication Instructions Recorded Confirmed Aspirin EC [Ecotrin Low Dose] 81 mg PO HS 09/04/24 09/04/24 Cyclobenzaprine [Flexeril] 10 mg PO HS 09/04/24 09/04/24 Meloxicam [Mobic] 7.5 mg PO HS 09/04/24 09/04/24 Omeprazole 20 mg PO HS 09/04/24 09/04/24 Pravastatin Sodium [Pravachol] 40 mg PO HS 09/04/24 09/04/24 Spironolactone [Aldactone] 25 mg PO HS 09/04/24 09/04/24 Verapamil HCl [Verapamil ER] 180 mg PO HS 09/04/24 09/04/24 Allergies Allergy/AdvReac Type Severity Reaction Status Date / Time Iodinated Contrast Media Allergy Mild Rash/Hives Verified 09/04/24 19:38 Review of Systems ROS Statement: Those systems with pertinent positive or pertinent negative responses have been documented in the HPI. ROS Other: All systems not noted in ROS Statement are negative. Past Medical History Past Medical History: GERD/Reflux, Osteoarthritis (OA), Supraventricular Tachycardia (SVT) Additional Past Medical History / Comment(s): SVT, hiatal hernia, arthritis History of Any Multi-Drug Resistant Organisms: None Reported Past Surgical History: Adenoidectomy, Hysterectomy, Tonsillectomy Additional Past Surgical History / Comment(s): bladder suspension Past Psychological History: No Psychological Hx Reported Past Alcohol Use History: None Reported Past Drug Use History: None Reported General Exam Limitations: no limitations General appearance: alert, in no apparent distress Head exam: Present: atraumatic, normocephalic, normal inspection Eye exam: Present: normal appearance, PERRL, EOMI. Absent: scleral icterus, conjunctival injection, periorbital swelling ENT exam: Present: normal exam, mucous membranes moist Neck exam: Present: normal inspection. Absent: tenderness, meningismus, lymphadenopathy Respiratory exam: Present: normal lung sounds bilaterally. Absent: respiratory distress, wheezes, rales, rhonchi, stridor Cardiovascular Exam: Present: regular rate, normal rhythm, normal heart sounds. Absent: systolic murmur, diastolic murmur, rubs, gallop, clicks GI/Abdominal exam: Present: soft, normal bowel sounds. Absent: distended, tenderness, guarding, rebound, rigid Extremities exam: Present: normal inspection, full ROM, normal capillary refill. Absent: tenderness, pedal edema, joint swelling, calf tenderness Back exam: Present: normal inspection Neurological exam: Present: alert, oriented X3, CN II-XII intact Psychiatric exam: Present: normal affect, normal mood Skin exam: Present: warm, dry, intact, normal color. Absent: rash Course Vital Signs 09/04/24 09/04/24 09/04/24 14:39 18:50 19:00 Temperature 97.5 F L Pulse Rate 96 92 87 Respiratory 17 18 20 Rate Blood Pressure 146/82 125/74 121/72 O2 Sat by Pulse 97 93 L 98 Oximetry 09/04/24 20:25 Temperature Pulse Rate 76 Respiratory 18 Rate Blood Pressure 120/82 O2 Sat by Pulse 95 Oximetry Chest Pain MDM - MDM Was pt. sent in by a medical professional or institution ([facility]NEKA Shin, [employer], urgent care, hospital, or jail...) When possible be specific @ -No Did you speak to anyone other than the patient for history (EMS, parent, family, police, friend...)? What history was obtained from this source @ -spoke with daughter for history Did you review nursing and triage notes (agree or disagree)? Why? @ -I reviewed and agree with nursing and triage notes Were old charts reviewed (outside hosp., previous admission, EMS record, old EKG, old radiological studies, urgent care reports/EKG's, jail records)? Report findings @ -No old charts were reviewed Differential Diagnosis (chest pain, altered mental status, abdominal pain women, abdominal pain men, vaginal bleeding, weakness, fever, dyspnea, syncope, headache, dizziness, GI bleed, back pain, seizure, CVA, palpatations, mental health, musculoskeletal)? @ -Differential Chest Pain: Stable Angina, Unstable Angina, STEMI, NSTEMI Aortic Dissection, Pneumothorax, Musculoskeletal, Esophageal Spasm GERD, Cholecystitis, Pancreatitis, Zoster, this is not meant to be an all-inclusive list. EKG interpreted by me (3pts min.). @ - First EKG done at 2:44 PM demonstrates sinus rhythm with a rate of 81. PA interval 170. QRS 97. QTc of 395. No acute ST segment elevations or depressions. Repeat EKG done at 1749 demonstrates continued sinus rhythm with a rate of 73. PA interval 165. QRS 92. QTc of 405. No acute ST segment elevations X-rays interpreted by me (1pt min.). @ -yes which demonstrates no acute process CT interpreted by me (1pt min.). @ -None done U/S interpreted by me (1pt. min.). @ -None done What testing was considered but not performed or refused? (CT, X-rays, U/S, labs)? Why? @ -None What meds were considered but not given or refused? Why? @ -None Did you discuss the management of the patient with other professionals (pro fessionals i.e. , PA, [employer]OBI[employer] DETAILER, lab, RT, psych nurse, social work administrator, prosthetics lab technician, teacher, air defence officer, case fitter)? Give summary @ -spoke with dr sewell who sees pt in ED. Also spoke with Dr. kingston for admission Was smoking cessation discussed for >3mins.? @ -No Was critical care preformed (if so, how long)? @ -Yes, 35 minutes for heparinization of the patient Were there social determinants of health that impacted care today? How? (Homelessness, low income, unemployed, alcoholism, drug addiction, transportation, low edu. Level, literacy, decrease access to med. care, custodial, rehab)? @ -No Was there de-escalation of care discussed even if they declined (Discuss DNR or withdrawal of care, Hospice)? DNR status @ -No What co-morbidities impacted this encounter? (DM, HTN, Smoking, COPD, CAD, Ca ncer, CVA, ARF, Chemo, Hep., AIDS, mental health diagnosis, sleep apnea, morbid obesity)? @ -SVT Was patient admitted / discharged? Hospital course, mention meds given and route, prescriptions, significant lab abnormalities, going to OR and other pertinent info. @ -Upon arrival patient seen and evaluated in bed hallway 21. Thorough history and physical exam was performed. Twelve-lead EKG is obtained. Laboratory studies are conducted which reveal an elevated troponin. Patient was started on heparin. Results are discussed with Dr. Lyon. He does present to the emergency department take the patient now for heart cath. She will be admitted to Dr. Kingston Undiagnosed new problem with uncertain prognosis? @ -No Drug Therapy requiring intensive monitoring for toxicity (Heparin, Nitro, In sulin, Cardizem)? @ -heparin Were any procedures done? @ -No Diagnosis/symptom? @ -acute chest pain, nstemi Acute, or Chronic, or Acute on Chronic? @ -Acute Uncomplicated (without systemic symptoms) or Complicated (systemic symptoms)? @ -Complicated Side effects of treatment? @ -No Exacerbation, Progression, or Severe Exacerbation? @ -No Poses a threat to life or bodily function? How? (Chest pain, [place], [place], pneumonia, PE, COPD, DKA, ARF, appy, cholecystitis, CVA, Diverticulitis, Homicidal, Suicidal, threat to staff... and all critical care pts) @ -Yes this patient does have elevated troponins Disposition Clinical Impression: Chest pain, Acute non-ST elevation myocardial infarction (NSTEMI) Disposition: ADMITTED IP TO THIS HOSP Condition: Fair Is patient prescribed a controlled substance at d/c from ED?: No Time of Disposition: 19:05 Decision to Admit Reason: Admit from EC Decision Date: 09/04/24 Decision Time: 19:05
[2024-09-04] MEDS: MORPHINE SULFATE 4 MG/ML SYRINGE IVP STA (19:02)
[2024-09-04] MEDS ORDERED: NALOXONE 0.4 MG/ML 1 ML VIAL IV PRN (19:05)
[2024-09-04] MEDS ORDERED: MORPHINE SULFATE 4 MG/ML SYRINGE IV PRN (19:10)
--- NOTE | 2024-09-04 20:44 | P.CRDCN ---
History of Present Illness Consult date: 09/04/24 History of present illness: The patient is a very pleasant 74-year-old female patient who sees a technical communicator in [facility] with a past medical history significant for history of dyslipidemia and history of SVT. The patient was brought to the hospital by her daughters. She was in her usual state of health till last few days when her daughters noticed that the patient has been experiencing shortness of breath with exertion which is somewhat new but lately and for the last 24 hours she has been experiencing discomfort in the chest. The discomfort is in the middle of the chest mostly with exertion as well as on the left side of the chest associated with shortness of breath with no dizziness or lightheadedness and a feeling of heart racing or furthering and no presyncope or syncope and no edema in the lower extremities. She presented to the emergency department for further evaluation. She underwent an EKG which showed sinus mechanism with nonspecific changes with T wave inversion in V1 and V2. Beside that she underwent cardiac enzymes came in to be abnormal and concerning for acute non-ST ovation myocardial infarction and currently she is having mild ongoing chest discomfort about 2/10 in intensity. She does have dyslipidemia. No high blood pressure. She does have significant family history of cardiovascular disease involving her father who had CAD at early age. Beside that she does have history of SVT has been controlled on the current dose of beta-james. The physical examination is remarkable for regular rhythm with a soft systolic murmur at the right and left upper sternal border with clear breathing sounds bilaterally and no edema was noted in the lower extremities and no carotid bruit was heard Assessment Acute non-ST elevation myocardial infarction Dyslipidemia Significant family history of cardiovascular disease History of SVT Plan Continue the current medical regimen Further cardiac investigation including an echocardiogram Proceed with coronary angiogram Follow-up with the patient Further recommendation to follow Past Medical History Past Medical History: GERD/Reflux, Osteoarthritis (OA), Supraventricular Tachycardia (SVT) Additional Past Medical History / Comment(s): SVT, hiatal hernia, arthritis History of Any Multi-Drug Resistant Organisms: None Reported Past Surgical History: Adenoidectomy, Hysterectomy, Tonsillectomy Additional Past Surgical History / Comment(s): bladder suspension Past Psychological History: No Psychological Hx Reported Past Alcohol Use History: None Reported Past Drug Use History: None Reported Medications and Allergies Home Medications Medication Instructions Recorded Confirmed Type Aspirin EC [Ecotrin Low Dose] 81 mg PO HS 09/04/24 09/04/24 History Cyclobenzaprine [Flexeril] 10 mg PO HS 09/04/24 09/04/24 History Meloxicam [Mobic] 7.5 mg PO HS 09/04/24 09/04/24 History Omeprazole 20 mg PO HS 09/04/24 09/04/24 History Pravastatin Sodium [Pravachol] 40 mg PO HS 09/04/24 09/04/24 History Spironolactone [Aldactone] 25 mg PO HS 09/04/24 09/04/24 History Verapamil HCl [Verapamil ER] 180 mg PO HS 09/04/24 09/04/24 History Allergies Allergy/AdvReac Type Severity Reaction Status Date / Time Iodinated Contrast Media Allergy Mild Rash/Hives Verified 09/04/24 19:38 Physical Exam Vitals: Vital Signs Temp Pulse Resp BP Pulse Ox 09/04/24 20:25 76 18 120/82 95 09/04/24 19:00 87 20 121/72 98 09/04/24 18:50 92 18 125/74 93 L 09/04/24 14:39 97.5 F L 96 17 146/82 97 Intake and Output 09/04/24 09/04/24 09/04/24 06:59 14:59 22:59 Other: Weight 69.4 kg Results 09/04/24 16:30 09/04/24 16:30 Cardiac Enzymes 09/04/24 09/04/24 09/04/24 Range/Units 16:30 16:30 19:29 AST 32 (14-36) U/L Troponin I 0.170 H* 0.146 H* (0.000-0.034) ng/mL Coagulation 09/04/24 Range/Units 16:30 PT 11.0 (10.0-12.5) sec APTT 25.4 (22.0-30.0) sec CBC 09/04/24 Range/Units 16:30 WBC 6.69 (4.50-10.00) 10*3/uL RBC 4.34 (4.10-5.20) 10*6/uL Hgb 13.2 (12.0-15.0) g/dL Hct 39.2 (37.2-46.3) % Plt Count 284 (140-440) 10*3/uL Comprehensive Metabolic Panel 09/04/24 Range/Units 16:30 Sodium 139 (137-145) mmol/L Potassium 4.5 (3.5-5.1) mmol/L Chloride 102 (98-107) mmol/L Carbon Dioxide 27 (22-30) mmol/L BUN 23 H (7-17) mg/dL Creatinine 0.73 (0.52-1.04) mg/dL Glucose 83 (74-99) mg/dL Calcium 9.8 (8.4-10.2) mg/dL AST 32 (14-36) U/L ALT 20 (4-34) U/L Alkaline Phosphatase 59 (38-126) U/L Total Protein 6.8 (6.3-8.2) g/dL Albumin 4.2 (3.5-5.0) g/dL Current Medications Generic Name Dose Route Start Last Admin Trade Name Freq PRN Reason Stop Dose Admin Heparin Sodium (Porcine) 0 unit 09/04/24 17:47 Heparin Sodium 1,000 Un/Ml (10ml Vl) IV PER PROTOCOL PRN Low PTT Protocol Heparin Sodium/Sodium Chloride 250 mls @ 8.328 mls/hr 09/04/24 18:00 09/04/24 18:38 25,000 unit/ Sodium Chloride IV 12 units/kg/hr .Q24H DAISY 8.328 mls/hr Administration Protocol 12 UNITS/KG/HR Morphine Sulfate 4 mg 09/04/24 19:10 Morphine Sulfate 4 Mg/Ml Syringe IV Q4HR PRN Severe Pain (Scale 7 to 10) Naloxone HCl 0.2 mg 09/04/24 19:05 Naloxone 0.4 Mg/Ml 1 Ml Vial IV Q2M PRN Opioid Reversal Intake and Output 09/04/24 09/04/24 09/04/24 06:59 14:59 22:59 Other: Weight 69.4 kg Patient Weight 09/05/24 06:59 Weight 69.4 kg 09/04/24 16:30 09/04/24 16:30
[2024-09-04] MEDS: IV FLUID CONTINUATION 1,000 ML IV ONE (20:55)
[2024-09-04] MEDS: methylPREDNISolone SOD SUCCI 125 MG/2 ML VIAL IVP ONE (20:55)
[2024-09-04] MEDS: MIDAZOLAM 2 MG/2 ML VIAL IVP ONE (20:59)
[2024-09-04] MEDS: LIDOCAINE 1% INJ 10MG/ML (20 ML MDV) SQ ONE (21:00)
[2024-09-04] MEDS: IOPAMIDOL-370 100ML BTL INJ ONE (21:09)
--- NOTE | 2024-09-04 21:13 | P.PCN ---
Date of Procedure: 09/04/24 Operative Findings: CARDIAC CATHETERIZATION PERFORMING PHYSICIAN: Jagdeep Dunlap MD, RPVI PROCEDURE PERFORMED: 1. Selective right and left coronary angiogram 2. Left heart catheterization 3. Ultrasound-guided access of the right radial artery INDICATION: Acute non-ST elevation myocardial infarction COMPLICATION: None APPROACH: Right radial artery LEVEL OF SEDATION: Moderate with a sedation length of 11 minutes PROCEDURE DESCRIPTION: After obtaining an informed consent, the patient was brought to cardiac catheter builder. Local anesthesia was performed using lidocaine subcutaneously. The right radial artery was cannulated using Seldinger technique, under ultrasound guidance, the guidewire passed easily, following that we advanced a 5-Fijian sheath dilator assembly, the wire and dilator were removed and sheath was flushed. Following that, 2 mg of verapamil along with 5000 unit heparin were given. Selective right and left coronary angiogram using a 5-Fijian JR4 and JL 3.5 catheters. Following that we did left heart catheterization using 5-Fijian pigtail catheter. The procedure was completed there was no complication. SELECTIVE CORONARY ANGIOGRAM: The right coronary artery: Large caliber vessel a dominant vessel with no evidence of high-grade stenosis Left main: Is angiographically normal The left circumflex: Large caliber vessel and codominant vessel with no evidence of high-grade stenosis The left anterior descending artery: Large caliber vessel appears to be angiographically normal as we HEMODYNAMICS: The LVEDP was 12 mmHg with no significant gradient across aortic valve CONCLUSION: 1. Normal coronary angiogram 2. Normal left-sided filling pressure POSTPROCEDURE MANAGEMENT: Medical treatment
[2024-09-04] MEDS: PANTOPRAZOLE 40 MG TABLET PO SCH (22:31)
[2024-09-04] MEDS: PRAVASTATIN SODIUM 40 MG TAB PO SCH (22:31)
[2024-09-04] MEDS: SPIRONOLACTONE 25 MG TAB PO SCH (22:31)
[2024-09-04] MEDS: VERAPAMIL SR 180 MG TABLET.ER PO SCH (22:31)
--- NOTE | 2024-09-05 07:55 | P.PN ---
Subjective Progress Note Date: 09/05/24 The patient is a very pleasant 74-year-old female patient who sees a management trainer in [facility] with a past medical history significant for history of dyslipidemia and history of SVT. The patient was brought to the hospital by her daughters. She was in her usual state of health till last few days when her daughters noticed that the patient has been experiencing shortness of breath with exertion which is somewhat new but lately and for the last 24 hours she has been experiencing discomfort in the chest. The discomfort is in the middle of the chest mostly with exertion as well as on the left side of the chest associated with shortness of breath with no dizziness or lightheadedness and a feeling of heart racing or furthering and no presyncope or syncope and no edema in the lower extremities. She presented to the emergency department for further evaluation. She underwent an EKG which showed sinus mechanism with nonspecific changes with T wave inversion in V1 and V2. Beside that she underwent cardiac enzymes came in to be abnormal and concerning for acute non-ST ovation myocardial infarction and currently she is having mild ongoing chest discomfort about 2/10 in intensity. She does have dyslipidemia. No high blood pressure. She does have significant family history of cardiovascular disease involving her father who had CAD at early age. Beside that she does have history of SVT has been controlled on the current dose of beta-james. The physical examination is remarkable for regular rhythm with a soft systolic murmur at the right and left upper sternal border with clear breathing sounds bilaterally and no edema was noted in the lower extremities and no carotid bruit was heard September 05, 2024 The patient was seen and evaluated this morning. She is feeling better. No sreedhar st pain at this point. The shortness of breath has improved. The heart catheterization revealed normal coronaries. The echo still pending. She is on aspirin and she is on statin and she is on calcium channel james for the SVT. From the cardiovascular standpoint of view, I will continue the current medical regimen and follow-up on the echocardiogram with possible discharge in the next 12 to 24 hours. The physical examination is remarkable for regular rhythm with a soft systolic murmur and clear breathing sounds bilaterally and no edema was noted Assessment Acute non-ST elevation myocardial infarction with normal coronary arteries with finding could be secondary to [place] Dyslipidemia Significant family history of cardiovascular disease History of SVT Plan Continue the current medical regimen Further recommendation to follow the echocardiogram Possible discharge in the next 12 to 24 hours Objective - Vital Signs Vital signs: Vital Signs Temp 98.3 F 09/05/24 03:29 Pulse 82 09/05/24 03:29 Resp 16 09/05/24 03:29 BP 103/66 09/05/24 03:29 Pulse Ox 93 L 09/05/24 03:29 FiO2 94 09/04/24 22:39 Intake & Output 09/04/24 09/05/24 09/05/24 18:59 06:59 18:59 Intake Total 390 Output Total 500 Balance -110 Weight 69.4 kg 69.6 kg Intake: IV 150 Oral 240 Output: Urine 500 Other: # Voids 1 - Labs CBC & Chem 7: 09/04/24 16:30 09/04/24 16:30 Labs: Abnormal Lab Results - Last 24 Hours (Table) 09/04/24 09/04/24 09/04/24 Range/Units 16:30 16:30 19:29 BUN 23 H (7-17) mg/dL Troponin I 0.170 H* 0.146 H* (0.000-0.034) ng/mL 09/04/24 Range/Units 23:49 BUN (7-17) mg/dL Troponin I 0.123 H* (0.000-0.034) ng/mL
[2024-09-05 08:44] LABS: HCT 38.2 % (37.2-46.3); HGB 12.4 g/dL (12.0-15.0); Lymphocytes # (A) 0.48 10*3/uL (0.90-5.00); Lymphocytes % (A) 11.6 %; MCH 29.6 pg (27.0-32.0); MCHC 32.5 g/dL (32.0-37.0); MCV 91.2 fL (80.0-97.0); Mean Platelet Volume 10.8 fL (9.5-12.2); Monocytes # (A) 0.03 10*3/uL (0.20-1.00); Monocytes % (A) 0.7 %; Neutrophils # (A) 3.61 10*3/uL (1.80-7.70); Neutrophils % (A) 87.2 %; Platelet Count 280 10*3/uL (140-440); RBC 4.19 10*6/uL (4.10-5.20); RDW 13.1 % (11.5-14.5); WBC 4.14 10*3/uL (4.50-10.00)
[2024-09-05 09:11] LABS: African American GFR (CKD) >90 (>60 ml/min/1.73 sqM); Anion Gap 9 mmol/L; Blood Urea Nitrogen 18 mg/dL (7-17); Carbon Dioxide 23 mmol/L (22-30); Chloride 105 mmol/L (98-107); Glucose 229 mg/dL (74-99); Non-African American GFR(CKD) 89 (>60 ml/min/1.73 sqM); Potassium 4.4 mmol/L (3.5-5.1); Sodium 137 mmol/L (137-145)
[2024-09-05 11:55] VITALS: RESP 18
--- NOTE | 2024-09-05 14:55 | CA ---
Transthoracic Echo Report Name: Jennifer Garibay Age: 74 Gender: F : 1950 Exam Date: 09/05/2024 13:06 Exam Location: [facility] Ht (in): 65 Wt (lb): 153 Ordering Physician: Jagdeep Dunlap MD ([id number]) Attending/Referring Phys: Bingo Clerk Danita Louise RDCS Procedure CPT: Indications: ACS Cardiac Hx: Technical Quality: Good Contrast 1: Total Dose (mL): Contrast 2: Total Dose (mL): MEASUREMENTS (Male / Female) Normal Values 2D ECHO LV Diastolic Diameter PLAX 3.0 cm 4.2 - 5.9 / 3.9 - 5.3 cm LV Systolic Diameter PLAX 2.3 cm IVS Diastolic Thickness 1.2 cm 0.6 - 1.0 / 0.6 - 0.9 cm LVPW Diastolic Thickness 0.6 cm 0.6 - 1.0 / 0.6 - 0.9 cm LV Relative Wall Thickness 0.6 LVOT Diameter 2.0 cm LV Diastolic Volume MOD BP 71.1 cm??? 67 - 155 / 56 - 104 cm??? LV Systolic Volume MOD BP 20.6 cm??? 22 - 58 / 19 - 49 cm??? LV Ejection Fraction MOD BP 71.1 % >= 55 % LV Cardiac Index MOD BP 2557.8 cm???/min???m??? LV Diastolic Volume MOD 4C 65.2 cm??? LV Systolic Volume MOD 4C 21.4 cm??? LV Ejection Fraction MOD 4C 67.3 % LV Cardiac Index MOD 4C 2222.0 cm???/min???m??? LV Diastolic Length 4C 6.6 cm LV Systolic Length 4C 4.7 cm LV Diastolic Volume MOD 2C 71.5 cm??? LV Systolic Volume MOD 2C 18.6 cm??? LV Ejection Fraction MOD 2C 74.0 % LV Cardiac Index MOD 2C 2682.8 cm???/min???m??? LV Diastolic Length 2C 7.2 cm LV Systolic Length 2C 5.1 cm LA Volume 64.9 cm??? 18 - 58 / 22 - 52 cm??? LA Volume Index 36.1 cm???/m??? 16 - 28 cm???/m??? DOPPLER AV Peak Velocity 151.1 cm/s AV Peak Gradient 9.1 mmHg AV Mean Velocity 116.7 cm/s AV Mean Gradient 5.6 mmHg AV Velocity Time Integral 28.6 cm LVOT Peak Velocity 122.5 cm/s LVOT Peak Gradient 6.0 mmHg LVOT Velocity Time Integral 24.0 cm LVOT Stroke Volume 78.8 cm??? LVOT Stroke Volume Index 44.7 ml/m??? LVOT Cardiac Index 3993.7 cm???/min???m??? AV Area Cont Eq vti 2.8 cm??? AV Area Cont Eq pk 2.7 cm??? MV Area PHT 5.7 cm??? Mitral E Point Velocity 84.3 cm/s Mitral A Point Velocity 107.5 cm/s Mitral E to A Ratio 0.8 MV Deceleration Time 134.2 ms TR Peak Velocity 260.0 cm/s TR Peak Gradient 27.0 mmHg Right Atrial Pressure 5.0 mmHg Pulmonary Artery Systolic Pressu 32.0 mmHg Right Ventricular Systolic Press 32.0 mmHg PV Peak Velocity 113.3 cm/s PV Peak Gradient 5.1 mmHg FINDINGS Left Ventricle Left ventricular ejection fraction is estimated at 60-65 %. Mildly increased septal wall thickness. Left ventricular cavity size normal. No obvious regional wall motion abnormalities. Right Ventricle Normal right ventricular size and function. Right ventricular systolic pressure within normal limits. Right Atrium Normal right atrial size. Left Atrium Moderately increased left atrial volume. Mitral Valve Structurally normal mitral valve. No evidence for mitral valve prolapse. No mitral stenosis. Trace mitral regurgitation. Aortic Valve Trileaflet aortic valve. No aortic valve stenosis or regurgitation. Tricuspid Valve Structurally normal tricuspid valve. No tricuspid stenosis. Mild tricuspid regurgitation. Pulmonic Valve Structurally normal pulmonic valve. No pulmonic stenosis. No pulmonic regurgitation. Pericardium No pericardial effusion. Aorta Normal size aortic root and proximal ascending aorta. CONCLUSIONS Normal LV systolic function No significant valvular abnormalities noted Trace pericardial effusion Normal pulmonary artery systolic pressure Previewed by: Dr. Jagdeep Dunlap MD (Electronically Signed) Final Date: 05 Sep 2024 14:54
[2024-09-05 15:10] VITALS: BP 111/65; PULSE 83; TEMP 97.4
[2024-09-05] MEDS ORDERED: ASPIRIN 81 MG PO SCH (21:00)
[2024-09-05] MEDS ORDERED: CYCLOBENZAPRINE 10 MG TAB PO SCH (21:00)
--- NOTE | 2024-09-06 00:55 | HP ---
HISTORY AND PHYSICAL CHIEF COMPLAINT: Chest pain. HISTORY OF PRESENT ILLNESS: This is a 74-year-old woman with past medical history of multiple complex medical issues including supraventricular tachycardia, and history of DJD, was admitted with chest pain for the last several days. The patient was referred from the primary care physician's office. The pain was felt 8/10 in the front part of the chest. The troponin was found to be elevated up to 0.146. EKG showed some ST-T changes. The patient underwent evaluation by Cardiology and underwent a cardiac catheterization, which showed normal coronary arteries and the patient is being closely monitored. There is no history of fever, rigors, or chills at this time. PAST MEDICAL HISTORY: GERD, DJD, and supraventricular tachycardia. Rest of the history and chart also reviewed. HOME MEDICATIONS: Reviewed Dose and rest of medications noted. ALLERGIES: Iodinated contrast dyes. FAMILY HISTORY: Previous history of smoking. REVIEW OF SYSTEMS: Fourteen-point review of systems is negative except as mentioned earlier. PHYSICAL EXAMINATION: VITAL SIGNS: Pulse is 79, blood pressure 111/65, and respirations 18. HEENT: Conjunctivae are normal. NECK: No JVD. CARDIOVASCULAR: S1 and S2. ABDOMEN: Soft. Nontender. LEGS: No edema. No swelling. NEUROLOGIC: No focal deficits. LABORATORY DATA: Reviewed. ASSESSMENT: 1. Chest pain. Possible history of acute [id number] myocardial infarction, status post cardiac catheterization with normal coronary arteries. 2. History of supraventricular tachycardia. 3. History of hiatal hernia. 4. History of degenerative joint disease. 5. History of gastroesophageal reflux disease. RECOMMENDATIONS: To continue current management and treatment. Otherwise, at this time, I would also recommend continue with antiplatelet agents. Also, recommend D-dimer. If the D-dimer is positive, CT angio with steroid preparation may be ordered. Overall prognosis is extremely guarded because of multiple complex medical issues. A 2D echo is being awaited. Further recommendations to follow. See orders for details. Discussed with family. MMODL / IJN: [id number] / NATALIIA
--- NOTE | 2024-09-06 12:03 | P.DS ---
Providers Date of admission: 09/04/24 19:05 Expected date of discharge: 09/05/24 Attending physician: Yenifer Mcgarry Consults: 09/04/24 19:10 Consult Physician Urgent Consulting Provider: [facility] Consult Reason/Comments: acute chest pain, nstemi Do you want consulting provider notified?: Already Contacted Primary care physician: Linda Najera Hospital Course: Final diagnosis Chest pain, possible history of acute NSTEMI, status post cardiac catheterization with normal arteries History of supraventricular tachycardia History of hiatal hernia History of degenerative joint disease History of gastroesophageal reflux disease GI prophylaxis DVT prophylaxis Full code Discharge disposition Patient is being discharged in a stable condition with guarded prognosis to home. Patient will follow-up with Dr. Najera in the outpatient setting upon discharge. Patient is to continue with current medications and outpatient follow-up with cardiology as scheduled. Total time taken is greater than 35 minutes. Hospital course This is a 74-year-old female who was recently admitted with chest pain that had been ongoing for a few days and her primary care provider instructed her to go to the ER for further evaluation. Patient was admitted with cardiology following underwent a cardiac catheterization which revealed normal coronary arteries with a mildly elevated troponin of 0.146. Patient reported feeling improved and no further chest pain would like to go home. Patient was evaluated by cardiology and cleared by cardiology for discharge. Recommended a repeat echo and if within normal limits may go home. Patient will follow-up in the outpatient setting with cardiology in the next 1 to 2 weeks. Patient also instructed to follow-up with primary care provider on discharge. Please refer to cardiology notes for further HPI. Currently no reports of chest pain, shortness of breath, or palpitations. Patient is afebrile. No reports of nausea or vomiting and patient is tolerating diet. Patient will be discharged home today. Physical exam: Gen: This is a 74-year-old female who is awake, alert and oriented x 3, well- developed HEENT: Head is atraumatic, normocephalic. Pupils equal, round. Sclerae is anicteric. NECK: Supple. No JVD. No lymphadenopathy. No thyromegaly. LUNGS: Clear to auscultation. No wheezes or rhonchi. No intercostal retraction s. HEART: Regular rate and rhythm. No murmur. ABDOMEN: Soft. Bowel sounds are present. No masses. No tenderness. EXTREMITIES: No pedal edema. No calf tenderness. NEUROLOGICAL: Patient is awake, alert and oriented x3. Cranial nerves 2 through 12 are grossly intact. Please refer to medication reconciliation sheet for a list of medications. The impression and plan of care has been dictated by Kaur Robins, Nurse Practitioner as directed. Dr. Zeferino MD I have performed a history and examination and MDM of this patient, discussed the same with the dictator, and agree with the dictator's assessment and plan as written ,documented as a scribe. Based on total visit time, I have performed more than 50% of the visit. Patient Condition at Discharge: Fair Plan - Discharge Summary Discharge Rx Participant: No New Discharge Prescriptions: Continue Aspirin EC [Ecotrin Low Dose] 81 mg PO HS Cyclobenzaprine [Flexeril] 10 mg PO HS Omeprazole 20 mg PO HS Pravastatin Sodium [Pravachol] 40 mg PO HS Meloxicam [Mobic] 7.5 mg PO HS Spironolactone [Aldactone] 25 mg PO HS Verapamil HCl [Verapamil ER] 180 mg PO HS Discharge Medication List Aspirin EC [Ecotrin Low Dose] 81 mg PO HS 09/04/24 [History] Cyclobenzaprine [Flexeril] 10 mg PO HS 09/04/24 [History] Meloxicam [Mobic] 7.5 mg PO HS 09/04/24 [History] Omeprazole 20 mg PO HS 09/04/24 [History] Pravastatin Sodium [Pravachol] 40 mg PO HS 09/04/24 [History] Spironolactone [Aldactone] 25 mg PO HS 09/04/24 [History] Verapamil HCl [Verapamil ER] 180 mg PO HS 09/04/24 [History] Follow up Appointment(s)/Referral(s): Jagdeep Dunlap MD [STAFF PHYSICIAN] - 1 Week Linda Najera MD [Primary Care Provider] - 1-2 days Patient Instructions/Handouts: Chest Pain (DC) Activity/Diet/Wound Care/Special Instructions: Activity limited until follow-up Follow-up with primary care provider on discharge Follow-up with cardiology outpatient Continue taking medications as prescribed Discharge Disposition: HOME SELF-CARE
== END 2024-09-05 19:18 | disposition home or self-care (01) | DRG 282 ==
LOC: EC 14:35 → 3SCARD 19:05
PROVIDERS: ADMIT Hospitalist; ATTEND Hospitalist
PROC: B2111ZZ Fluoroscopy of Multiple Coronary Arteries using Low Osmolar Contrast (ICD-10-PCS; 2024-09-04)
PROC: 4A023N7 Measurement of Cardiac Sampling and Pressure, Left Heart, Percutaneous Approach (ICD-10-PCS; principal; 2024-09-04 20:28)
DX: I21.4 Non-ST elevation (NSTEMI) myocardial infarction (principal); E78.5 Hyperlipidemia, unspecified; F10.20 Alcohol dependence, uncomplicated; I10 Essential (primary) hypertension; I08.1 Rheumatic disorders of both mitral and tricuspid valves; F17.200 Nicotine dependence, unspecified, uncomplicated; R01.1 Cardiac murmur, unspecified; I25.10 Atherosclerotic heart disease of native coronary artery without angina pectoris; I25.2 Old myocardial infarction; K21.9 Gastro-esophageal reflux disease without esophagitis; Z71.6 Tobacco abuse counseling; Z79.82 Long term (current) use of aspirin; Z79.899 Other long term (current) drug therapy; Z82.49 Family history of ischemic heart disease and other diseases of the circulatory system; Z90.710 Acquired absence of both cervix and uterus; Z91.041 Radiographic dye allergy status; Z87.19 Personal history of other diseases of the digestive system
CPT/HCPCS: 36415; 71046; 80048; 80053; 83735; 83880; 84484; 85025; 85379; 85610; 85730; 93005; 93306; 93458; 96374; 96375; 99291